=== PATIENT | female | born 1980 | race Two or more races ===

== ENCOUNTER 2016-07-05 20:37 | Emergency (ER) | payer SELFPAY ==
[~2016-07-05] VITALS: Ht 162.6 cm; Wt 95.3 kg
[~2016-07-05 20:37] MED LIST: CEPH-264 PO; FLUC150T PO; HYDR-971 PO; METR500T PO; NAPR500T8 PO; OXYC-250 PO; TRAM-29 PO
[2016-07-05 20:44] VITALS: BP 128/62
[2016-07-05] MEDS ORDERED: PENICILLIN G BENZATHINE LA 1,200,000 UNIT/2 ML DISP.SYRIN. IM ONE (21:45)
[2016-07-05 21:48] LABS: OBC FLU VALID
--- NOTE | 2016-07-05 21:55 | PHYS DOC ---
Past Medical History Past Medical History: UTI Past Surgical History: Appendectomy Additional Information: Nonsmoker Alcohol Use: None Drug Use: None Adult General Chief Complaint Chief Complaint: FEVER HPI HPI Patient is a 36 year old female who presents with subjective fever and sore throat starting today. She also reports nasal congestion, body aches, and nausea without vomiting. She denies cough, ear pain, or difficulty breathing. She last took Advil at 10:00. She did not receive a flu shot this season. She does not have a PCP. Review of Systems Review of Systems Constitutional: Reports subjective fever. Eyes: Denies change in visual acuity, redness, or eye pain. [] HENT: Denies ear pain. Reports sore throat and nasal drainage. Respiratory: Denies cough or shortness of breath. [] Cardiovascular: Denies chest pain, palpitations or edema. [] GI: Denies abdominal pain, vomiting, bloody stools or diarrhea. Reports nausea without vomiting. : Denies dysuria, hematuria or urinary frequency. [] Musculoskeletal: Denies back pain or joint pain. [] Integument: Denies rash or skin lesions. [] Neurologic: Denies headache, focal weakness or sensory changes. [] Endocrine: Denies polyuria or polydipsia. [] Psych: Denies anxiety or depression. [] All systems reviewed and negative unless otherwise stated in the HPI. Current Medications Current Medications Current Medications Medications (Trade) Dose Ordered Sig/Carrie Start Time Stop Time Status Last Admin Dose Admin Penicillin G Benzathine (Bicillin L-A) 1,200,000 unit 1X ONCE 07/05/16 21:45 07/05/16 21:46 DC 07/05/16 21:49 1,200,000 UNIT Allergies Allergies Allergies Coded Allergies Type Severity Reaction Last Updated Verified No Known Drug Allergies 08/14/14 No Physical Exam Physical Exam Constitutional: Well developed, well nourished, no acute distress, non-toxic appearance. [] HENT: Normocephalic, atraumatic, bilateral external ears normal, oropharynx moist, no oral exudates, nose normal. Bilateral TMs without erythema or bulging. There is posterior pharyngeal erythema with mild tonsillar edema bilaterally with exudates. Bilateral nasal turbinates are swollen and erythematous with purulent drainage. Eyes: PERRLA, EOMI, conjunctiva normal, no discharge. [] Neck: Normal range of motion, no tenderness, supple, no stridor. [] Cardiovascular: Heart rate regular rhythm, no murmur [] Lungs & Thorax: Bilateral breath sounds clear to auscultation without wheezes, rales, or rhonchi. Skin: Warm, dry, no erythema, no rash. [] Neurologic: Alert and oriented X 3, normal motor function, normal sensory function, no focal deficits noted. [] Psychologic: Affect normal, judgement normal, mood normal. [] Current Patient Data Vital Signs Vital Signs Date Time Temp Pulse Resp B/P Pulse Ox O2 Delivery O2 Flow Rate FiO2 07/05/16 20:44 99.8 120 18 98 Room Air 99.8 Lab Values Laboratory Tests Test 07/05/16 21:08 Influenza Type A Antigen Negative (NEGATIVE) Influenza Type B Antigen Negative (NEGATIVE) Rapid strep positive EKG EKG [] Radiology/Procedures Radiology/Procedures [] Course & Med Decision Making Course & Med Decision Making Pertinent Labs and Imaging studies reviewed. (See chart for details) The patient was given IM Bicillin LA for strep throat in the emergency department. Dragon Disclaimer Dragon Disclaimer This electronic medical record was generated, in whole or in part, using a voice recognition dictation system. Departure Departure Impression: Primary Impression: Strep throat Disposition: 01 HOME, SELF-CARE Condition: STABLE Referrals: NO PCP (PCP) Patient Instructions: Strep Throat, [id number] Additional Instructions: You tested positive for strep throat. Your flu test was negative. You were given a shot of antibiotics in the emergency department. You should not require any additional treatment for your strep throat. Please take Tylenol or ibuprofen for fever or pain. Use according to package instructions. Drink lots of water and get plenty of rest. Please follow-up with a primary care provider within the next week. Return to emergency department if you have high fever not responding to medication, difficulty breathing or swallowing, or other new or concerning symptoms. UABREY ODEN Jul 05, 2016 21:55
[2016-07-06 12:55] LABS: NEGATIVE OBC STREP NEG; POSITIVE OBC STREP POS
== END 2016-07-05 22:01 | disposition home or self-care (01) ==
LOC: ER 20:37
DX: J02.0 Streptococcal pharyngitis (principal)
CPT/HCPCS: 87804; 87880; 96372; 99284; J0561

== ENCOUNTER 2018-01-22 19:12 | Emergency (ER) | payer BC ==
[~2018-01-22] VITALS: Ht 162.6 cm; Wt 95.3 kg
[~2018-01-22 19:12] MED LIST changes: -OXYC-250 PO; +OXYC-328 PO; -TRAM-29 PO; +TRAM-48 PO
[2018-01-22 20:24] VITALS: BP 129/84
[2018-01-22] MEDS ORDERED: ACETAMINOPHEN 500 MG TABLET PO ONE (20:45)
[2018-01-22 21:40] LABS: BASO # 0.1 x10^3/uL (0.0-0.2); BASO % 1 % (0-3); EOS % 0 % (0-3); HEMATOCRIT 37.9 % (36.0-47.0); HEMOGLOBIN 12.9 g/dL (12.0-15.5); LYMPH # 1.1 x10^3/uL (1.0-4.8); LYMPH % 12 % (24-48); MEAN CORPUSCULAR HEMOGLOBIN 29 pg (25-35); MEAN CORPUSCULAR HGB CONC 34 g/dL (31-37); MEAN CORPUSCULAR VOLUME 84 fL (79-100); MONO # 0.6 x10^3/uL (0.0-1.1); MONO % 6 % (0-9); NEUT # 7.9 x10^3uL (1.8-7.7); NEUT % 81 % (31-73); PLATELET COUNT 262 x10^3/uL (140-400); RED CELL DISTRIBUTION WIDTH 15.4 % (11.5-14.5); WHITE BLOOD COUNT 9.8 x10^3/uL (4.0-11.0)
[2018-01-22 21:58] LABS: CALCIUM 8.9 mg/dL (8.5-10.1); CREATININE 0.7 mg/dL (0.6-1.0); GFR 94.2; POTASSIUM 3.7 mmol/L (3.5-5.1)
--- NOTE | 2018-01-22 22:28 | RAD ---
Limited ultrasound of the right breast 01/22/2018 CLINICAL HISTORY: Lateral right breast redness and swelling with pain. TECHNIQUE: A real-time ultrasound examination of the lateral aspect of the right breast in the area of the patient's pain/redness was performed. Multiple images were obtained. FINDINGS: Within the subcutaneous fat immediately deep to the skin surface a hypoechoic rounded area is seen which measures 4 mm in greatest diameter. This is consistent with a microabscess given the patient's history. No additional abscess is seen. IMPRESSION: 4 mm micro abscess is seen immediately deep to the skin surface within the lateral right breast as outlined above. No additional abscess is seen. Electronically signed by: Kvng Lopez MD (01/22/2018 10:25 PM) [facility]
[2018-01-22] MEDS ORDERED: CLINDAMYCIN 600MG PREMIX 50 ML IV ONE (22:30)
[2018-01-22] MEDS ORDERED: DEXAMETHASONE SOD PHOS 4 MG/ML VIAL PO ONE (22:30)
[2018-01-22] MEDS ORDERED: PRED50TA PO (23:40)
[2018-01-22] MEDS ORDERED: CLIN300C8 PO (23:40)
--- NOTE | 2018-01-22 23:40 | PHYS DOC ---
Past Medical History Past Medical History: No Pertinent History Past Surgical History: Appendectomy Alcohol Use: None Drug Use: None Adult General Chief Complaint Chief Complaint: INSECT BITE HPI HPI Patient is a 37 year old [f__sex] who presents with [] Review of Systems Review of Systems Constitutional: Denies fever or chills [] Eyes: Denies change in visual acuity, redness, or eye pain [] HENT: Denies nasal congestion or sore throat [] Respiratory: Denies cough or shortness of breath [] Cardiovascular: No additional information not addressed in HPI [] GI: Denies abdominal pain, nausea, vomiting, bloody stools or diarrhea [] : Denies dysuria or hematuria [] Musculoskeletal: Denies back pain or joint pain [] Integument: Denies rash or skin lesions [] Neurologic: Denies headache, focal weakness or sensory changes [] Endocrine: Denies polyuria or polydipsia [] All other systems were reviewed and found to be within normal limits, except as documented in this note. Current Medications Current Medications Current Medications Medications (Trade) Dose Ordered Sig/Carrie Start Time Stop Time Status Last Admin Dose Admin Acetaminophen (Tylenol) 1,000 mg 1X ONCE 01/22/18 20:45 01/22/18 20:46 DC 01/22/18 22:21 1,000 MG Clindamycin Phosphate 50 ml @ 100 mls/hr 1X ONCE 01/22/18 22:30 01/22/18 22:59 DC 01/22/18 22:22 100 MLS/HR Dexamethasone Sodium Phosphate (Decadron) 10 mg 1X ONCE 01/22/18 22:30 01/22/18 22:31 DC 01/22/18 22:21 10 MG Allergies Allergies Allergies Coded Allergies Type Severity Reaction Last Updated Verified No Known Drug Allergies 08/14/14 No Physical Exam Physical Exam Constitutional: Well developed, well nourished, no acute distress, non-toxic appearance. [] HENT: Normocephalic, atraumatic, bilateral external ears normal, oropharynx moist, no oral exudates, nose normal. [] Eyes: PERRLA, EOMI, conjunctiva normal, no discharge. [] Neck: Normal range of motion, no tenderness, supple, no stridor. [] Cardiovascular:Heart rate regular rhythm, no murmur [] Lungs & Thorax: Bilateral breath sounds clear to auscultation [] Abdomen: Bowel sounds normal, soft, no tenderness, no masses, no pulsatile masses. [] Skin: Warm, dry, no erythema, no rash. [] Back: No tenderness, no CVA tenderness. [] Extremities: No tenderness, no cyanosis, no clubbing, ROM intact, no edema. [] Neurologic: Alert and oriented X 3, normal motor function, normal sensory function, no focal deficits noted. [] Psychologic: Affect normal, judgement normal, mood normal. [] Current Patient Data Vital Signs Vital Signs Date Time Temp Pulse Resp B/P (MAP) Pulse Ox O2 Delivery O2 Flow Rate FiO2 01/22/18 20:24 100.4 100 20 129/84 (99) 99 Room Air 100.4 Lab Values Laboratory Tests Test 01/22/18 21:26 01/22/18 21:39 White Blood Count 9.8 x10^3/uL (4.0-11.0) Red Blood Count 4.50 x10^6/uL (3.50-5.40) Hemoglobin 12.9 g/dL (12.0-15.5) Hematocrit 37.9 % (36.0-47.0) Mean Corpuscular Volume 84 fL (79-100) Mean Corpuscular Hemoglobin 29 pg (25-35) Mean Corpuscular Hemoglobin Concent 34 g/dL (31-37) Red Cell Distribution Width 15.4 % (11.5-14.5) H Platelet Count 262 x10^3/uL (140-400) Neutrophils (%) (Auto) 81 % (31-73) H Lymphocytes (%) (Auto) 12 % (24-48) L Monocytes (%) (Auto) 6 % (0-9) Eosinophils (%) (Auto) 0 % (0-3) Basophils (%) (Auto) 1 % (0-3) Neutrophils # (Auto) 7.9 x10^3uL (1.8-7.7) H Lymphocytes # (Auto) 1.1 x10^3/uL (1.0-4.8) Monocytes # (Auto) 0.6 x10^3/uL (0.0-1.1) Eosinophils # (Auto) 0.0 x10^3/uL (0.0-0.7) Basophils # (Auto) 0.1 x10^3/uL (0.0-0.2) Sodium Level 140 mmol/L (136-145) Potassium Level 3.7 mmol/L (3.5-5.1) Chloride Level 102 mmol/L (98-107) Carbon Dioxide Level 27 mmol/L (21-32) Anion Gap 11 (6-14) Blood Urea Nitrogen 9 mg/dL (7-20) Creatinine 0.7 mg/dL (0.6-1.0) Estimated GFR (Cockcroft-Gault) 94.2 Glucose Level 102 mg/dL (70-99) H Lactic Acid Level 1.0 mmol/L (0.4-2.0) Calcium Level 8.9 mg/dL (8.5-10.1) POC Urine HCG, Qualitative Hcg negative (Negative) Laboratory Tests 01/22/18 21:26 Laboratory Tests 01/22/18 21:26 EKG EKG [] Radiology/Procedures Radiology/Procedures [] Course & Med Decision Making Course & Med Decision Making Pertinent Labs and Imaging studies reviewed. (See chart for details) [] Dragon Disclaimer Dragon Disclaimer This electronic medical record was generated, in whole or in part, using a voice recognition dictation system. Departure Departure Impression: Primary Impression: Cellulitis Additional Impression: Allergic to insect bites and stings Disposition: 01 HOME, SELF-CARE Condition: STABLE Referrals: NO PCP (PCP) Patient Instructions: Cellulitis, [id number] Additional Instructions: Fill the prescriptions and use them as directed. You may take Tylenol or ibuprofen as needed for pain. Follow-up with her primary care doctor in 48 hours to have the site rechecked. Return to the emergency room if her symptoms worsen. Scripts Prednisone (PREDNISONE) 50 Mg Tablet 1 TAB PO DAILY, #5 TAB 0 Refills Prov: JAVIER CORTEZ PHYSICIAN SCIENTIST 01/22/18 Clindamycin Hcl (CLINDAMYCIN HCL) 300 Mg Capsule 300 MG PO QID for 7 Days, #28 CAP Prov: JAVIER CORTEZ PHYSICIAN SCIENTIST 01/22/18 Problem Qualifiers Primary Impression: Cellulitis Site of cellulitis: trunk Site of cellulitis of trunk: chest wall Qualified Codes: L03.313 - Cellulitis of chest wall JAVIER CORTEZ PHYSICIAN SCIENTIST Jan 22, 2018 23:40
== END 2018-01-22 23:51 | disposition home or self-care (01) ==
LOC: ER 19:12
DX: S20.161A Insect bite (nonvenomous) of breast, right breast, initial encounter (principal); L03.313 Cellulitis of chest wall; T63.481A Toxic effect of venom of other arthropod, accidental (unintentional), initial encounter; Z90.49 Acquired absence of other specified parts of digestive tract; W57.XXXA Bitten or stung by nonvenomous insect and other nonvenomous arthropods, initial encounter; Y93.89 Activity, other specified; Y99.8 Other external cause status; Y92.89 Other specified places as the place of occurrence of the external cause
CPT/HCPCS: 36415; 76641; 80048; 81025; 83605; 85025; 87040; 96365; 99285; J1100; J3490

== ENCOUNTER 2020-07-07 09:32 | Emergency (ER) | payer BC ==
[~2020-07-07] VITALS: Ht 162.6 cm; Wt 95.4 kg
[~2020-07-07 09:32] MED LIST changes: +CLIN300C9 PO; +HYDR-3164 PO; -HYDR-971 PO; -OXYC-328 PO; +OXYC1TAB22 PO; +PRED50TA PO
[2020-07-07 10:30] LABS: BILIRUBIN,URINE NEGATIVE (NEG); CLARITY,URINE CLEAR; COLOR,URINE YELLOW; NITRITE,URINE NEGATIVE (NEG); PROTEIN,URINE 30 mg/dL (NEG-TRACE)
[2020-07-07] MEDS ORDERED: IV NORMAL SALINE 1000ML BAG 1,000 ML IV ONE (10:30)
[2020-07-07 10:42] LABS: WBC,URINE >40 /HPF (0-4)
[2020-07-07 10:43] LABS: BACTERIA,URINE FEW /HPF (0-FEW)
[2020-07-07 11:03] LABS: BASO % 0 % (0-3); EOS % 0 % (0-3); HEMATOCRIT 33.3 % (36.0-47.0); HEMOGLOBIN 10.9 g/dL (12.0-15.5); LYMPH # 0.8 x10^3/uL (1.0-4.8); LYMPH % 5 % (24-48); MEAN CORPUSCULAR HEMOGLOBIN 28 pg (25-35); MEAN CORPUSCULAR HGB CONC 33 g/dL (31-37); MEAN CORPUSCULAR VOLUME 84 fL (79-100); MONO # 1.6 x10^3/uL (0.0-1.1); MONO % 11 % (0-9); NEUT # 12.4 x10^3/uL (1.8-7.7); NEUT % 84 % (31-73); PLATELET COUNT 198 x10^3/uL (140-400); RED BLOOD COUNT 3.95 x10^6/uL (3.50-5.40); WHITE BLOOD COUNT 14.8 x10^3/uL (4.0-11.0)
[2020-07-07 11:12] LABS: CALCIUM 8.5 mg/dL (8.5-10.1); CREATININE 0.9 mg/dL (0.6-1.0); GFR 69.3; POTASSIUM 3.7 mmol/L (3.5-5.1)
[2020-07-07 11:17] LABS: ALBUMIN 2.9 g/dL (3.4-5.0); ALBUMIN/GLOBULIN RATIO 0.7 (1.0-1.7); TOTAL BILIRUBIN 1.6 mg/dL (0.2-1.0); TOTAL PROTEIN 6.9 g/dL (6.4-8.2)
[2020-07-07] MEDS ORDERED: IOHEXOL 300 MG/ML 100ML VIAL. IV ONE (11:45)
[2020-07-07] MEDS ORDERED: CONTRAST GIVEN. MC PRN (11:45)
[2020-07-07] MEDS ORDERED: cefTRIAXone IV Push 1 GM VIAL. IVP ONE (12:00)
[2020-07-07] MEDS ORDERED: KETOROLAC 30 MG/ML VIAL. IVP ONE (12:00)
[2020-07-07 12:23] VITALS: BP 108/70
--- NOTE | 2020-07-07 12:34 | RAD ---
INDICATION: Reason: LOWER ABDOMINAL PAIN / Spl. Instructions: IV OMNI 300 75 MLS / History: . COMPARISON: December 2015 TECHNIQUE: Axial CT images obtained through the abdomen and pelvis with contrast. One or more of the following individualized dose reduction techniques were utilized for this examinat ion: 1. Automated exposure control; 2. Adjustment of the mA and/or kV according to patient size; 3 . Use of iterative reconstruction technique. FINDINGS: Abdominal aorta is not aneurysmal. Small fat-containing right greater than left inguinal hernia is maria spected. No intrahepatic bile duct dilation. Postcholecystectomy changes. No peripancreatic fluid collection. Spleen is unremarkable. Edema to the fat adjacent to the bilateral kidneys with hyperenhancement of the urothelium within the ureter as well as renal pelvis. Urinary bladder is distended at time of exam. Intrauterine device. No dilated loops of bowel to suggest obstruction. Degenerative changes of spine. Scattered sclerotic foci in the osseous structures commonly from bone island. IMPRESSION: * Indistinctness the fat adjacent to the bilateral kidneys and ureter with prominent urothelial enha ncement as well as prominent adjacent lymph nodes. Would correlate with urinary symptoms since infect ious etiology such as ureteritis and pyelonephritis/pyelitis could have this appearance. The lymph no kyle could be reactive to this process. If the patient has risk factors for neoplasm follow-up could b e obtained to ensure that this does not increase. Electronically signed by: Carlos Alberto Rendon MD (07/07/2020 12:31 PM) [id number]
--- NOTE | 2020-07-07 12:37 | PHYS DOC ---
Past Medical History Past Medical History: No Pertinent History Past Surgical History: Appendectomy, Cholecystectomy Smoking Status: Never Smoker Alcohol Use: None Drug Use: None General Adult EDM: Chief Complaint: FEVER HPI: HPI: Patient is a 40 year old female who presented to ER for evaluation of left flank pain, fever, chills, lower abdominal pain. Symptoms have been going on for several days. Patient went to have a rapid Covid test yesterday and it came back negative. Patient has history of appendectomy and cholecystectomy in the past. Patient complained of pain with urination and frequency. Review of Systems: Review of Systems: Constitutional: Fever and chill. Eyes: Denies change in visual acuity. [] HENT: Denies nasal congestion or sore throat. [] Respiratory: Denies cough or shortness of breath. [] Cardiovascular: Denies chest pain or edema. [] GI: Denies abdominal pain, nausea, vomiting, bloody stools or diarrhea. [] : Positive for dysuria, left flank pain.] Musculoskeletal: Denies back pain or joint pain. [] Integument: Denies rash. [] Neurologic: Denies headache, focal weakness or sensory changes. [] Endocrine: Denies polyuria or polydipsia. [] Lymphatic: Denies swollen glands. [] Psychiatric: Denies depression or anxiety. [] Heart Score: Risk Factors: Risk Factors: DM, Current or recent (<one month) smoker, HTN, HLP, family history of CAD, obesity. Risk Scores: Score 0 - 3: 2.5% MACE over next 6 weeks - Discharge Home Score 4 - 6: 20.3% MACE over next 6 weeks - Admit for Clinical Observation Score 7 - 10: 72.7% MACE over next 6 weeks - Early Invasive Strategies Current Medications: Current Medications Medications (Trade) Dose Ordered Sig/Carrie Start Time Stop Time Status Last Admin Dose Admin Ceftriaxone Sodium (Rocephin) 1 gm 1X ONCE 07/07/20 12:00 07/07/20 12:01 DC 07/07/20 12:18 1 GM Info (CONTRAST GIVEN -- Rx MONITORING) 1 each PRN DAILY PRN 07/07/20 11:45 07/09/20 11:44 Iohexol (Omnipaque 300 Mg/ml) 75 ml 1X ONCE 07/07/20 11:45 07/07/20 11:46 DC 07/07/20 11:57 75 ML Ketorolac Tromethamine (Toradol 30mg Vial) 30 mg 1X ONCE 07/07/20 12:00 07/07/20 12:01 DC 07/07/20 12:18 30 MG Sodium Chloride 1,000 ml @ 1,000 mls/hr 1X ONCE 07/07/20 10:30 07/07/20 11:29 DC 07/07/20 10:53 1,000 MLS/HR Allergies: Allergies: Allergies Coded Allergies Type Severity Reaction Last Updated Verified No Known Drug Allergies 07/07/20 No Physical Exam: PE: Constitutional: Well developed, well nourished, no acute distress, non-toxic appearance. [] HENT: Normocephalic, atraumatic, bilateral external ears normal, oropharynx moist, no oral exudates, nose normal. [] Eyes: PERRLA, EOMI, conjunctiva normal, no discharge. [] Neck: Normal range of motion, no tenderness, supple, no stridor. [] Cardiovascular:Heart rate regular rhythm, no murmur [] Lungs & Thorax: Bilateral breath sounds clear to auscultation [] Abdomen: Bowel sounds normal, soft, left flank tenderness to palpation no masses, no pulsatile masses. [] Skin: Warm, dry, no erythema, no rash. [] Back: No tenderness, left CVA tenderness to palpation ] Extremities: No tenderness, no cyanosis, no clubbing, ROM intact, no edema. [] Neurologic: Alert and oriented X 3, normal motor function, normal sensory function, no focal deficits noted. [] Psychologic: Affect normal, judgement normal, mood normal. [] Current Patient Data: Labs: Laboratory Tests Test 07/07/20 10:00 07/07/20 10:17 07/07/20 10:45 Urine Collection Type Void Urine Color Yellow Urine Clarity Clear Urine pH 6.0 (<5.0-8.0) Urine Specific [place] 1.010 (1.000-1.030) Urine Protein 30 mg/dL (NEG-TRACE) Urine Glucose (UA) Negative mg/dL (NEG) Urine Ketones (Stick) Negative mg/dL (NEG) Urine Blood Moderate (NEG) Urine Nitrite Negative (NEG) Urine Bilirubin Negative (NEG) Urine Urobilinogen Dipstick 1.0 mg/dL (0.2 mg/dL) Urine Leukocyte Esterase Large (NEG) Urine RBC 1-2 /HPF (0-2) Urine WBC >40 /HPF (0-4) Urine Squamous Epithelial Cells Mod /LPF Urine Bacteria Few /HPF (0-FEW) POC Urine HCG, Qualitative Hcg negative (Negative) White Blood Count 14.8 x10^3/uL (4.0-11.0) H Red Blood Count 3.95 x10^6/uL (3.50-5.40) Hemoglobin 10.9 g/dL (12.0-15.5) L Hematocrit 33.3 % (36.0-47.0) L Mean Corpuscular Volume 84 fL (79-100) Mean Corpuscular Hemoglobin 28 pg (25-35) Mean Corpuscular Hemoglobin Concent 33 g/dL (31-37) Red Cell Distribution Width 17.0 % (11.5-14.5) H Platelet Count 198 x10^3/uL (140-400) Neutrophils (%) (Auto) 84 % (31-73) H Lymphocytes (%) (Auto) 5 % (24-48) L Monocytes (%) (Auto) 11 % (0-9) H Eosinophils (%) (Auto) 0 % (0-3) Basophils (%) (Auto) 0 % (0-3) Neutrophils # (Auto) 12.4 x10^3/uL (1.8-7.7) H Lymphocytes # (Auto) 0.8 x10^3/uL (1.0-4.8) L Monocytes # (Auto) 1.6 x10^3/uL (0.0-1.1) H Eosinophils # (Auto) 0.0 x10^3/uL (0.0-0.7) Basophils # (Auto) 0.0 x10^3/uL (0.0-0.2) Sodium Level 139 mmol/L (136-145) Potassium Level 3.7 mmol/L (3.5-5.1) Chloride Level 102 mmol/L (98-107) Carbon Dioxide Level 27 mmol/L (21-32) Anion Gap 10 (6-14) Blood Urea Nitrogen 8 mg/dL (7-20) Creatinine 0.9 mg/dL (0.6-1.0) Estimated GFR (Cockcroft-Gault) 69.3 BUN/Creatinine Ratio 9 (6-20) Glucose Level 147 mg/dL (70-99) H Calcium Level 8.5 mg/dL (8.5-10.1) Total Bilirubin 1.6 mg/dL (0.2-1.0) H Aspartate Amino Transferase (AST) 72 U/L (15-37) H Alanine Aminotransferase (ALT) 106 U/L (14-59) H Alkaline Phosphatase 118 U/L (46-116) H Total Protein 6.9 g/dL (6.4-8.2) Albumin 2.9 g/dL (3.4-5.0) L Albumin/Globulin Ratio 0.7 (1.0-1.7) L Lipase 82 U/L (73-393) Laboratory Tests 07/07/20 10:45 Laboratory Tests 07/07/20 10:45 Vital Signs: Vital Signs Date Time Temp Pulse Resp B/P (MAP) Pulse Ox O2 Delivery O2 Flow Rate FiO2 07/07/20 10:51 79 20 105/61 (76) 96 Room Air 07/07/20 10:03 98.3 98.3 EKG: EKG: [] Radiology/Procedures: Radiology/Procedures: [][facility] [address] [place], [place] [id number] IMAGING REPORT Signed PATIENT: KRISTY PATTEN ACCOUNT: [id number] : 1980 LOCATION: ER AGE: 40 SEX: F EXAM STATUS: REG ER ORD. PHYSICIAN: PAL STRICKLAND DO REASON: LOWER ABDOMINAL PAIN PROCEDURE: CT ABD PELV W/ IV CONTRST ONLY INDICATION: Reason: LOWER ABDOMINAL PAIN / Spl. Instructions: IV OMNI 300 75 MLS / History: . COMPARISON: December 2015 TECHNIQUE: Axial CT images obtained through the abdomen and pelvis with contrast. One or more of the following individualized dose reduction techniques were utilized for this examination: 1. Automated exposure control; 2. Adjustment of the mA and/or kV according to patient size; 3. Use of iterative reconstruction technique. FINDINGS: Abdominal aorta is not aneurysmal. Small fat-containing right greater than left inguinal hernia is suspected. No intrahepatic bile duct dilation. Postcholecystectomy changes. No peripancreatic fluid collection. Spleen is unremarkable. Edema to the fat adjacent to the bilateral kidneys with hyperenhancement of the urothelium within the ureter as well as renal pelvis. Urinary bladder is distended at time of exam. Intrauterine device. No dilated loops of bowel to suggest obstruction. Degenerative changes of spine. Scattered sclerotic foci in the osseous structures commonly from bone island. IMPRESSION: * Indistinctness the fat adjacent to the bilateral kidneys and ureter with prominent urothelial enhancement as well as prominent adjacent lymph nodes. Would correlate with urinary symptoms since infectious etiology such as ureteritis and pyelonephritis/pyelitis could have this appearance. The lymph nodes could be reactive to this process. If the patient has risk factors for neoplasm follow-up could be obtained to ensure that this does not increase. Electronically signed by: Paulino Rendon MD (07/07/2020 12:31 PM) [id number] DICTATED and SIGNED BY: PAULINO RENDON MD DATE: 07/07/20 [id number] 0 Course & Med Decision Making: Course & Med Decision Making Pertinent Labs and Imaging studies reviewed. (See chart for details) Patient is a 40-year-old female who presented to ER due to fever chill, left flank pain radiated to her left lower abdominal area for several days. Patient also complained of pain with urination. Her lab work and CT scan show evidence of pyelonephritis. Patient was given IV fluid, IV Toradol, patient felt much better. Patient will be discharged home with 10-day course of Levaquin. Patient will need to follow-up with her family physician for reevaluation in a few days. Patient was instructed to return to ER if her condition did not get improved. Morgan Disclaimer: Mrogan Disclaimer: This electronic medical record was generated, in whole or in part, using a voice recognition dictation system. Departure Departure Impression: Primary Impression: Pyelonephritis Disposition: 01 DC HOME SELF CARE/HOMELESS Condition: IMPROVED Referrals: NO PCP (PCP) Follow up with your doctor in 2 days for reevaluation Patient Instructions: Pyelonephritis, Adult Additional Instructions: Thank you for visiting our Emergency Department. We appreciate you trusting us with your care. If any additional problems come up don't hesitate to return to visit us. Please follow up with your primary care provider so they can plan additional care if needed and know about the problem that you had. If symptoms worsen come back to the Emergency Department. Any concerning symptoms that start such as chest pain, shortness of air, weakness or numbness on one side of the body, running high fevers or any other concerning symptoms return to the ER. Scripts Levofloxacin (LEVOFLOXACIN) 750 Mg Tablet 1 TAB PO DAILY, #10 TAB Prov: PAL STRICKLAND DO 07/07/20 PAL STRICKLAND DO Jul 07, 2020 12:37
[2020-07-07] MEDS ORDERED: LEVO750T5 PO (13:26)
== END 2020-07-07 13:13 | disposition home or self-care (01) ==
LOC: ER 09:32
DX: N12 Tubulo-interstitial nephritis, not specified as acute or chronic (principal); R10.32 Left lower quadrant pain; R50.9 Fever, unspecified; R30.0 Dysuria; Z90.89 Acquired absence of other organs; Z90.49 Acquired absence of other specified parts of digestive tract
CPT/HCPCS: 36415; 74177; 80053; 81001; 81025; 83690; 85025; 87086; 96361; 96374; 96375; 99285; J0696; J1885; J7030; Q9967

== ENCOUNTER 2020-12-14 18:54 | Emergency (ER) | payer BC, OTHER ==
[~2020-12-14] VITALS: Ht 162.6 cm; Wt 100.0 kg
[~2020-12-14 18:54] MED LIST changes: +LEVO750T5 PO
--- NOTE | 2020-12-14 21:37 | RAD ---
CT LUMBAR SPINE WO History: Fall, low back pain. Technique: Noncontrast CT was performed of the lumbar spine. Multiplanar reconstructions were perform ed. Comparison: CT abdomen pelvis 07/07/2020. Findings: Normal vertebral body height and alignment. No fracture. There is both mild intervertebral disc space narrowing and facet hypertrophy at L5-S1. No significant spinal canal or neuroforaminal stenoses. Visualized abdomen and pelvic contents are unremarkable. Interval removal of intrauterine device. Impression: 1. No acute findings in the lumbar spine. 2. Mild degenerative disc and facet disease at L5-S1. Exposure: One or more of the following individualized dose reduction techniques were utilized for thi s examination: 1. Automated exposure control 2. Adjustment of the mA and/or kV according to patient size 3. Use of iterative reconstruction technique. Electronically signed by: John Mckeon MD (12/14/2020 9:35 PM) [facility]
[2020-12-14] MEDS ORDERED: CYCL10TA2 PO (22:01)
[2020-12-14] MEDS ORDERED: NAPR-514 PO (22:01)
--- NOTE | 2020-12-14 22:01 | PHYS DOC ---
Past Medical History Past Medical History: No Pertinent History (PAULYPAT Clements NURSE [employer]) Past Surgical History: Appendectomy, Cholecystectomy (PAULYPAT Clements [employer]) Smoking Status: Never Smoker Alcohol Use: Occasionally Drug Use: None (PAT PRUETT Barbara NUR[employer]) General Adult EDM: Chief Complaint: LOWER BACK PAIN OR INJURY HPI: HPI: Patient is a 40 year old female no significant medical history who presents to the ED today complaining of a throbbing intermittent 9 out of 10 right low back pain, right buttock pain, symptoms began last night after she fell. She states she missed 1 step and fell down landing on her buttocks. Patient denies any loss of consciousness. States the pain is worse on sitting on her buttocks. Denies any pain radiating to bilateral lower extremities. Denies any loss of bowel/bladder function. Denies any numbness or tingling to bilateral lower extremities. Denies any hematuria, flank pain, denies hitting her head on the ground. Denies any neck pain. (PAT PRUETT Barbara NUR[employer]) Review of Systems: Review of Systems: Constitutional: Denies fever or chills. [] Eyes: Denies change in visual acuity. [] HENT: Denies nasal congestion or sore throat. [] Respiratory: Denies cough or shortness of breath. [] Cardiovascular: Denies chest pain or edema. [] GI: Denies abdominal pain, nausea, vomiting, bloody stools or diarrhea. [] : Denies dysuria. [] Musculoskeletal: Reports low back pain. Integument: Denies rash. [] Neurologic: Denies headache, focal weakness or sensory changes. [] Psychiatric: Denies depression or anxiety. [] (PAULYPAT Clements NUR[employer]) Heart Score: C/O Chest Pain: N/A Risk Factors: Risk Factors: DM, Current or recent (<one month) smoker, HTN, HLP, family hi story of CAD, obesity. Risk Scores: Score 0 - 3: 2.5% MACE over next 6 weeks - Discharge Home Score 4 - 6: 20.3% MACE over next 6 weeks - Admit for Clinical Observation Score 7 - 10: 72.7% MACE over next 6 weeks - Early Invasive Strategies (PAT PRUETT NUR[employer]) Allergies: Allergies: Allergies Coded Allergies Type Severity Reaction Last Updated Verified No Known Drug Allergies 3/2/21 No (PAT PRUETT Barbara N[employer]) Physical Exam: PE: Constitutional: Well developed, well nourished, no acute distress, non-toxic appearance. [] HENT: Normocephalic, atraumatic, bilateral external ears normal, oropharynx moist, no oral exudates, nose normal. [] Eyes: PERRLA, EOMI, conjunctiva normal, no discharge. [] Neck: Normal range of motion, no tenderness, supple, no stridor. [] Cardiovascular:Heart rate regular rhythm, no murmur [] Lungs & Thorax: Bilateral breath sounds clear to auscultation [] Abdomen: Bowel sounds normal, soft, no tenderness, no masses, no pulsatile masses. [] Skin: Warm, dry, no erythema, no rash. [] Back: Diffuse paraspinal muscle tenderness to the right low back and upper buttock, buttock slight midline lumbar spine tenderness, no CVA tenderness, negative straight leg raises bilaterally Extremities: No tenderness, no cyanosis, no clubbing, ROM intact, no edema. [] Neurologic: Alert and oriented X 3, normal motor function, normal sensory function, no focal deficits noted. [] Psychologic: Affect normal, judgement normal, mood normal. [] (PAULYTyreePAT Barbara NURSE PLASTICS) Current Patient Data: Labs: Laboratory Tests Test 12/14/20 20:11 POC Urine HCG, Qualitative Hcg negative (Negative) Vital Signs: Vital Signs Date Time Temp Pulse Resp B/P (MAP) Pulse Ox O2 Delivery O2 Flow Rate FiO2 12/14/20 20:20 98.3 75 16 120/69 (83) 100 Room Air 98.3 (SEBLEPAT Barbara NURSE [employer]LAST[employer]) EKG: EKG: [] (PAT PRUETT NURSE [employer]) Radiology/Procedures: Radiology/Procedures: []PROCEDURE: CT LUMBAR SPINE WO CONTRAST CT LUMBAR SPINE WO History: Fall, low back pain. Technique: Noncontrast CT was performed of the lumbar spine. Multiplanar reconstructions were performed. Comparison: CT abdomen pelvis 07/07/2020. Findings: Normal vertebral body height and alignment. No fracture. There is both mild intervertebral disc space narrowing and facet hypertrophy at L5-S1. No significant spinal canal or neuroforaminal stenoses. Visualized abdomen and pelvic contents are unremarkable. Interval removal of intrauterine device. Impression: 1. No acute findings in the lumbar spine. 2. Mild degenerative disc and facet disease at L5-S1. Exposure: One or more of the following individualized dose reduction techniques were utilized for this examination: 1. Automated exposure control 2. Adjustment of the mA and/or kV according to patient size 3. Use of iterative reconstruction technique. Electronically signed by: John Casey MD (12/14/2020 9:35 PM) [facility] DICTATED and SIGNED BY: JOHN CASEY MD DATE: 12/14/[id number] 0 (PAT PRUETT APRN) Course & Med Decision Making: Course & Med Decision Making Pertinent Labs and Imaging studies reviewed. (See chart for details) This is a 40-year-old female patient who presents to the ED today complaining of right low back pain, right buttock pain after falling down yesterday. CT of the lumbar spine is negative for any acute findings. Discharge to home. Follow-up with the PCP in 1 to 2 weeks. (PAT PRUETT APRN) Course & Med Decision Making I have participated in the care of this patient and I have reviewed and agree with all pertinent clinical information above including history, exam, and recommendations. Doc Baron DO (DOC BARON DO) Morgan Disclaimer: Morgan Disclaimer: This electronic medical record was generated, in whole or in part, using a voice recognition dictation system. (PAT PRUETT APRN) Departure Departure Impression: Primary Impression: Fall down steps Qualified Codes: W10.8XXA - Fall (on) (from) other stairs and steps, initial encounter Additional Impression: Lumbar contusion Qualified Codes: S30.0XXA - Contusion of lower back and pelvis, initial encounter Disposition: HOME / SELF CARE / HOMELESS Condition: STABLE Referrals: NO PCP (PCP) follow up with your doctor in one week Patient Instructions: Contusion Additional Instructions: You were evaluated in the emergency room after falling, your CT of the low back is negative for any acute findings. We encourage you to try and apply ice to your low back. Try and follow-up with your primary care doctor in 1 to 2 weeks. Take the prescribed medications as needed for pain Scripts Cyclobenzaprine Hcl (CYCLOBENZAPRINE HCL) 10 Mg Tablet 1 TAB PO TID, #30 TAB Prov: MUTUNGA,PAT M NURSE [employer]LAST[employer] 12/14/20 Naproxen (NAPROXEN) 500 Mg Tablet 1 TAB PO BID for pain, #20 TAB 0 Refills Prov: PAT PRUETT APRN 12/14/20 PAT PRUETT APRN Dec 14, 2020 22:01 DOC BARON DO Dec 15, 2020 00:42
[2020-12-14 22:25] VITALS: BP 127/81
== END 2020-12-14 22:25 | disposition home or self-care (01) ==
LOC: ER 18:54
DX: S30.0XXA Contusion of lower back and pelvis, initial encounter (principal); Z90.89 Acquired absence of other organs; Z90.49 Acquired absence of other specified parts of digestive tract; W10.8XXA Fall (on) (from) other stairs and steps, initial encounter; Y93.89 Activity, other specified; Y92.89 Other specified places as the place of occurrence of the external cause; Y99.8 Other external cause status
CPT/HCPCS: 72131; 81025; 99284-25

== ENCOUNTER → 2021-08-30 | Outpatient (CLI) | payer BC ==
[~2021-08-30] MED LIST changes: +CLIN-94 PO; -CLIN300C9 PO; +CYCL10TA19 PO; +NAPR-514 PO
[2021-08-30 13:25] LABS: BASO % 0 % (0-3); EOS % 1 % (0-3); HEMATOCRIT 35.9 % (36.0-47.0); HEMOGLOBIN 12.2 g/dL (12.0-15.5); LYMPH # 1.2 x10^3/uL (1.0-4.8); LYMPH % 22 % (24-48); MEAN CORPUSCULAR HEMOGLOBIN 29 pg (25-35); MEAN CORPUSCULAR HGB CONC 34 g/dL (31-37); MEAN CORPUSCULAR VOLUME 85 fL (79-100); MONO # 0.3 x10^3/uL (0.0-1.1); MONO % 6 % (0-9); NEUT % 71 % (31-73); PLATELET COUNT 331 x10^3/uL (140-400); RED BLOOD COUNT 4.21 x10^6/uL (3.50-5.40); RED CELL DISTRIBUTION WIDTH 15.9 % (11.5-14.5); WHITE BLOOD COUNT 5.6 x10^3/uL (4.0-11.0)
[2021-08-31 18:11] LABS: RUBELLA IGG ANTIBODY 16.5 index (Immune >0.99)
== END ==
LOC: LAB 11:36
PROVIDERS: ATTEND Registered Nurse
DX: Z34.91 Encounter for supervision of normal pregnancy, unspecified, first trimester (principal)
CPT/HCPCS: 36415; 82950; 85025; 85660; 86592; 86703; 86762; 86787; 86803; 86850; 86900; 86901; 87340